=== PATIENT | male | born 1970 | race Caucasian/White ===

== ENCOUNTER 2023-10-22 15:50 | Emergency (ER) | payer OTHER, SELFPAY ==
[2023-10-22 15:52] VITALS: BP 161/99
--- NOTE | 2023-10-22 16:26 | ED.GENMED ---
History of Present Illness
General
Chief Complaint: Musculo-Skeletal Complaint
Source: patient
Exam Limitations: none
Time Seen by Provider: 10/22/23 16:07
Nursing documentation reviewed up to this point in time: agreed with
Travel History
Have you had any contact with someone who has COVID-19?: No
Do you have any symptoms of coronavirus? Fever > 100 degrees, chills, cough, shortness of breath, sore throat, loss of taste or smell, muscle aches, or headache?: No
History of Present Illness
History of Present Illness:
pt is 52 y/o M with h/o
right heel pain x 1 mo
no injury
says pain someitmes is worse in the morning, and sometimes worse with walking after a whlie
wears work boots with hard sole at work, no change
no swelling, warmth, fever, redness, drainage, tingling
pt just tried advil today without relief
he has not tried any meds routinely
Past History
Past History
ED Past Medical History: None
ED Past Surgical History: None
Social History
Tobacco: Non-smoker
Alcohol: None
Drug: None
Personal:
Living: with family
Employment: Employed
Review of Systems
Review of Systems
Allergies reviewed?: Yes
All Other Systems: Not applicable
Phy Exam
Physical Exam
Physical Exam:
GENERAL: Alert , in no apparent distress, comfortable at rest
HEAD: NCAT
CV: 2+ DP PULSES B/L
NEUROLOGICAL: Alert and oriented, no focal neuro deficits, , 5/5 strength, sensation intact, ambulation slight limp right leg
SKIN: Warm and dry, no redness
MUSCULOSKELETAL: normal foot inspection
no redness/warmth
no rashes
tenderness at insertion point of plantar fascia
full rom of ankle
no bony tendenress
calf normal
PSYCH: Normal and appropriate interaction.
Course
Orders/Labs/Results
Orders:
Orders
10/22/23 16:14
CR Foot - Right Min 3 Views Urgent
Comment:
Reason For Exam: right heel pain
Vital Signs
Initial and Last Documented VS:
Initial Vital Signs
Temp Pulse Resp BP Pulse Ox
98.7 F 83 18 161/99 97
10/22/23 15:52 10/22/23 15:52 10/22/23 15:52 10/22/23 15:52 10/22/23 15:52
Last Documented Vital Signs
Temp Pulse Resp BP Pulse Ox
98.7 F 83 18 161/99 97
10/22/23 15:52 10/22/23 15:52 10/22/23 15:52 10/22/23 15:52 10/22/23 15:52
MDM/Problems Addressed
Differential Diagnosis Includes:
heel spur, plantar fasciitis
MDM/Problems Addressed:
52-year-old male with atraumatic right plantar heel pain for the last month. Patient does wear work boots and hard soled sneakers and has not changed his footing but has noticed pain throughout the day. Sometimes is worse in the morning and
sometimes is worse after has been standing on it. He only tried Advil 1 dose today. He tried to call and make an appointment with his family doctor but they did not have 1 for 2 to 3 weeks. On exam the patient has normal inspection of the foot
but tender at the insertion point of the plantar fascia. Radiographic imaging with an x-ray showed a heel spur, this was independently reviewed by me. There is no other bony concerns. Patient likely has a plantar fasciitis. Recommended to buy a
plantar fasciitis splint to wear at night and continue to wear his hard soled shoes, NSAIDs Naprosyn 500 mg twice daily for 7 days.
*Critical Care Note
Total Time (30-74mins, 75-104mins- exclusive of procedures): Not Applicable
ED Attending Note
-
Portions of this chart may have been created with voice recognition software.� Occasional wrong word or��sound alike� substitutions may have occurred due to the inherent limitations of voice recognition software.
Discharge Plan
Departure
Patient Disposition: Home (Routine Discharge)
Date of Disposition: 10/22/23
Time of Disposition: 16:55
Patient with high blood pressure during this ER visit?: No
Covid-19: Not Applicable
Discharge Problem:
Plantar fasciitis
Instructions: Heel Pain Caused by Plantar Fasciitis (DC), Plantar Fasciitis Exercises
Prescriptions:
New
naproxen 500 mg tablet
500 mg PO BID PRN (Reason: Pain) Qty: 14 0RF
Referrals:
Ajay Manzano MD [Family Provider] -
Alon Rider DPM [Active] - Follow up in 5-7 days
Activity Restrictions/Additional Instructions:
Your pain is likely from plantar fasciitis. You did have a heel spur on your x-ray which is a risk factor for developing this condition. You should wear your hard soled shoes during the day. At night you should wear a plantar fascia splint which
will dorsiflex the foot to stretch out the fascia. Take naproxen twice a day 500 mg with food for 5 to 7 days. Follow-up with the fiberglass roller if the pain continues. Return for any skin changes, inability to walk, fever or chills, or any concerns
Interventions
Interventions:
*Risk Screen - Suicide Last Done: 10/22/23 15:52
*General Assessment Last Done: 10/22/23 15:52
*Neglect/Abuse Screening Last Done: 10/22/23 15:52
*ED COVID-19 Vaccine History Last Done: 10/22/23 16:17
ED-Musculoskeletal Assessment Last Done: 10/22/23 16:17
[2023-10-22 17:09] VITALS: BP 139/100
== END 2023-10-22 17:10 | disposition home or self-care (01) ==
LOC: EMR 15:50
PROVIDERS: EMERGENCY PHYSICIAN Emergency Medicine; FAMILY PHYSICIAN Family Medicine
DX: M72.2 Plantar fascial fibromatosis (principal)
CPT/HCPCS: 99283; 73630

== ENCOUNTER → 2024-03-03 13:27 | Outpatient (REF) | payer OTHER, SELFPAY | LOC: MRI 3T 13:27 | PROVIDERS: ATTENDING PHYSICIAN Orthopaedic Surgery Hand Surgery | DX: M25.511 Pain in right shoulder (principal) | CPT/HCPCS: 23350; 73040; 73222 ==

== ENCOUNTER 2024-04-16 06:08 | Day surgery (SDC) | payer OTHER, SELFPAY ==
[2024-04-16] VITALS (8 sets, daily range): BP systolic 115–140; BP diastolic 80–101; BMI 26.9
[2024-04-16] MEDS: TYLENOL 1000 MG PO (07:49)
[2024-04-16] MEDS: NORMOSOL-R 1000 IV (07:50)
[2024-04-16] MEDS: CELEBREX 200 MG PO (07:50)
[2024-04-16] MEDS: ROXICODONE 5 MG PO (12:32)
== END 2024-04-16 12:45 | disposition home or self-care (01) ==
LOC: SDS 06:08
PROVIDERS: ATTENDING PHYSICIAN Orthopaedic Surgery Hand Surgery
DX: S46.211A Strain of muscle, fascia and tendon of other parts of biceps, right arm, initial encounter (principal); X58.XXXA Exposure to other specified factors, initial encounter; M75.41 Impingement syndrome of right shoulder; M75.121 Complete rotator cuff tear or rupture of right shoulder, not specified as traumatic
CPT/HCPCS: 29827; 29828; 29826; 93005; C1713; C1776

== ENCOUNTER 2024-05-13 16:20 | Outpatient (RCR) | payer OTHER, SELFPAY | END 2024-05-13 23:59 | disposition home or self-care (01) | LOC: RPT 16:20 | PROVIDERS: ATTENDING PHYSICIAN Orthopaedic Surgery Hand Surgery; FAMILY PHYSICIAN Family Medicine | DX: M75.101 Unspecified rotator cuff tear or rupture of right shoulder, not specified as traumatic (principal); Z73.6 Limitation of activities due to disability | CPT/HCPCS: 97010; 97110; 97140; 97162 ==

== ENCOUNTER 2024-06-13 09:06 | Outpatient (RCR) | payer OTHER, SELFPAY | END 2024-06-13 23:59 | disposition home or self-care (01) | LOC: RPT 09:06 | PROVIDERS: ATTENDING PHYSICIAN Orthopaedic Surgery Hand Surgery; FAMILY PHYSICIAN Family Medicine | DX: Z47.89 Encounter for other orthopedic aftercare (principal); M75.101 Unspecified rotator cuff tear or rupture of right shoulder, not specified as traumatic; Z73.6 Limitation of activities due to disability; M25.511 Pain in right shoulder; M62.81 Muscle weakness (generalized) | CPT/HCPCS: 97010; 97110; 97140 ==

== ENCOUNTER 2024-07-15 17:01 | Outpatient (RCR) | payer OTHER, SELFPAY | END 2024-07-15 23:59 | disposition home or self-care (01) | LOC: RPT 17:01 | PROVIDERS: ATTENDING PHYSICIAN Orthopaedic Surgery Hand Surgery; FAMILY PHYSICIAN Family Medicine | DX: Z47.89 Encounter for other orthopedic aftercare (principal); M75.101 Unspecified rotator cuff tear or rupture of right shoulder, not specified as traumatic; Z73.6 Limitation of activities due to disability; M25.511 Pain in right shoulder | CPT/HCPCS: 97010; 97110; 97112; 97140 ==

== ENCOUNTER 2024-08-13 07:55 | Outpatient (RCR) | payer OTHER, SELFPAY | END 2024-08-13 23:59 | disposition home or self-care (01) | LOC: RPT 07:55 | PROVIDERS: ATTENDING PHYSICIAN Orthopaedic Surgery Hand Surgery; FAMILY PHYSICIAN Family Medicine | DX: Z47.89 Encounter for other orthopedic aftercare (principal); M75.101 Unspecified rotator cuff tear or rupture of right shoulder, not specified as traumatic; Z73.6 Limitation of activities due to disability; M25.511 Pain in right shoulder; M62.81 Muscle weakness (generalized) | CPT/HCPCS: 97010; 97110; 97112; 97140 ==

== ENCOUNTER 2024-09-09 08:55 | Outpatient (RCR) | payer OTHER, SELFPAY | END 2024-09-09 23:59 | disposition home or self-care (01) | LOC: RPT 08:55 | PROVIDERS: ATTENDING PHYSICIAN Orthopaedic Surgery Hand Surgery; FAMILY PHYSICIAN Family Medicine | DX: Z47.89 Encounter for other orthopedic aftercare (principal); M75.101 Unspecified rotator cuff tear or rupture of right shoulder, not specified as traumatic; Z73.6 Limitation of activities due to disability; M25.511 Pain in right shoulder; M62.81 Muscle weakness (generalized) | CPT/HCPCS: 97110; 97112; 97140; 97530 ==